=== PATIENT | male | born 1950 | race Two or more races ===

== ENCOUNTER 2017-07-19 15:02 | Inpatient (IN) | payer MEDICARE, OTHER ==
[~2017-07-19] VITALS: Ht 180.3 cm; Wt 64.9 kg
--- NOTE | 2017-07-19 16:00 | NUR ---
GPS/RN PATIENT ADMITTED ON A 5150 HOLD FOR GD AND DTS, UNDER THE CARE OF DR KRAMER AND DR LEE. PER HOLD PATIENT HAS A HISTORY OF SCHIZOPHRENIA, IS YELLING ST STAFF, TALKING TO SELF,VOICING SUICIDAL IDEATION AND UNABLE TO DESCRIBE SAFETY PLAN. UPON FACE TO FACE ASSESSMENT, PATIENT IS ALERT X 2, STABLE CONDITION, HYPERVERBAL, UNKEMPT, DISORGANIZED,DELUSIONAL AND HYPERSEXUAL. PATIENT DENIES ANY SI AT THIS TIME AND STATED " I DID NOT SAY THAT". BOTH DR'S AWARE OF NEW ADMISSION. PATIENT REFUSED TO SIGN ADMISSION PAPERWORK, COSIGNED BY 2 RN. CONTRABAND IN LOCKER, BELONGINGS ( CLOTHING TAKEN TO LAUNDRY). PATIENT WILL BE ON 1:1 FOR HYPERSEXUAL BEHAVIOR. WILL CONTINUE TO MONITOR Q 15 MIN FOR SAFETY AND BEHAVIOR.
[2017-07-19] MEDS ORDERED: ACETAMINOPHEN 325 MG TABLET PO PRN (17:00)
[2017-07-19] MEDS ORDERED: MAGNESIUM HYDROXIDE 30 ML UDC PO PRN (17:00)
[2017-07-19] MEDS ORDERED: MAG HYDROX/AL HYDROX/SIMETH 30 ML UDC PO PRN (17:00)
--- NOTE | 2017-07-19 19:02 | NUR ---
RN NOTE:PATIENT OPENING HIS GOWN SEXUALLY INAPPROPRIATE AND STATED "I OPEN MY GOWN BECAUSE I WANT TO SHOW MY JEAN",DR KRAMER NOTIFIED PATIENT ON 1:1 SITTER.
[2017-07-19 20:00] VITALS: BP_SYST 113; BP_SYST 125; BP_DIAS 64; BP_DIAS 89
[2017-07-20 08:00] VITALS: BP 135/84
[2017-07-20 08:06] LABS: CHOLESTEROL 143 mg/dL (<200); HDL CHOLESTEROL 56 mg/dL (40-60); LDL 77 mg/dL (0-99); TRIGLYCERIDES 61 mg/dL (30-150)
[2017-07-20 08:08] LABS: ALBUMIN 2.9 g/dL (3.4-5.0); BILIRUBIN,TOTAL 0.4 mg/dL (0.2-1.0); CALCIUM, SERUM 8.8 mg/dL (8.5-10.1); CREATININE 0.9 mg/dL (0.6-1.3); TOTAL PROTEIN, SERUM 6.3 g/dL (6.4-8.2)
[2017-07-20] MEDS: DIVALPROEX SODIUM 125 MG CAP.SPRINK PO SCH ×2 (11:30→21:00)
[2017-07-20] MEDS: HALOPERIDOL 5 MG TABLET PO SCH ×3 (12:19→21:00)
[2017-07-20] MEDS ORDERED: diphenhydrAMINE HCL 50 MG/ML VIAL IM STA (14:15)
[2017-07-20] MEDS ORDERED: HALOPERIDOL LACTATE INJ 5 MG/ML VIAL IM STA (14:15)
--- NOTE | 2017-07-20 14:30 | NUR ---
GPS RN NOTE; PATIENT EXTREMELY AGITATED, NOT COOPERATIVE,BANGING ON THE WINDOW AND AC TALKING TO SELF REFUSED ALL PO MEDICATIONS,NOTIFIED DR KRAMER WITH T.O. ORDER FOR BENADRYL 25 MG IM ONCE, HALDOL 5 MG IM ONCE . ORDER PLACED AND CARED OUT WILL CONTINUE MONITORING FOR SAFETY AND BEHAVIOR Q 15 MIN.
[2017-07-20 16:00] VITALS: BP 124/68
--- NOTE | 2017-07-20 16:15 | NUR ---
Initial Discharge Plan: Pt resides at [address] [place] [id number] and has no telephone #. Upon discharge pt would like to return to his home. Pt denied having a support system in place however provided Braxton Palacios, [phone] as an emergency contact. SW will help form a safe and proper discharge.
[2017-07-20] MEDS: BENZTROPINE MESYLATE (1 MG) 1 MG TABLET PO SCH (16:36)
[2017-07-20 20:00] VITALS: BP 130/75
--- NOTE | 2017-07-20 20:44 | NUR ---
PATIENT REFUSED TO TAKE HIS NIGHT MEDICATIONS. VERY AGGRESSIVE, NON-COMPLIANT. 1:1 SITTER AT THE BEDSIDE FOR SAFETY.
[2017-07-21 08:00] VITALS: BP 114/86
[2017-07-21] MEDS: BENZTROPINE MESYLATE (1 MG) 1 MG TABLET PO SCH ×2 (08:31→16:54)
[2017-07-21] MEDS: DIVALPROEX SODIUM 125 MG CAP.SPRINK PO SCH ×2 (08:31→20:37)
[2017-07-21] MEDS: HALOPERIDOL 5 MG TABLET PO SCH ×4 (08:32→20:37)
[2017-07-21 16:00] VITALS: BP 135/76
[2017-07-21 20:00] VITALS: BP 130/78
[2017-07-22 08:11] VITALS: BP 113/74
[2017-07-22] MEDS: DIVALPROEX SODIUM 125 MG CAP.SPRINK PO SCH ×2 (08:22→21:54)
[2017-07-22] MEDS: BENZTROPINE MESYLATE (1 MG) 1 MG TABLET PO SCH ×2 (08:22→16:53)
[2017-07-22] MEDS: HALOPERIDOL 5 MG TABLET PO SCH ×3 (08:22→16:54)
[2017-07-22] MEDS: LORAZEPAM 0.5 MG TABLET PO PRN (13:47)
[2017-07-22 16:00] VITALS: BP 128/79
[2017-07-22 19:42] VITALS: BP 126/73
[2017-07-22] MEDS: ZOLPIDEM TARTRATE 10 MG TABLET PO PRN (21:56)
[2017-07-23 08:00] VITALS: BP 126/91
[2017-07-23] MEDS: LORAZEPAM 0.5 MG TABLET PO PRN ×2 (08:35→17:26)
[2017-07-23] MEDS: BENZTROPINE MESYLATE (1 MG) 1 MG TABLET PO SCH ×2 (08:36→16:04)
[2017-07-23] MEDS: DIVALPROEX SODIUM 125 MG CAP.SPRINK PO SCH ×2 (08:36→21:42)
[2017-07-23] MEDS: HALOPERIDOL 5 MG TABLET PO SCH ×3 (08:36→16:04)
--- NOTE | 2017-07-23 08:40 | NUR ---
GPS/RN PATIENT IS ANXIOUS, AGITATED, WITH POOR BOUNDARIES, ADMINISTERED ATIVAN 1 MG PO, WILL CONTINUE TO MONITOR.
[2017-07-23] MEDS ORDERED: diphenhydrAMINE HCL 50 MG/ML VIAL IM STA (10:21)
[2017-07-23] MEDS ORDERED: HALOPERIDOL LACTATE INJ 5 MG/ML VIAL IM STA (10:21)
--- NOTE | 2017-07-23 10:23 | NUR ---
RN-CO: Patient is non redirectable, keep on going inside a nursing station. Dr Littlejohn examined him and ordered Haldol 5 mg IM STAT, and Benadryl 25 mg IM stat.
--- NOTE | 2017-07-23 10:30 | NUR ---
GPS/RN PATIENT IS EXTREMELY AGITATED, ANXIOUS AND UNABLE TO REDIRECT AT THIS TIME, PATIENT IS ATTEMPTING TO AWOL AND COMING INTO NURSING STATION. DR KRAMER ON UNIT AND ORDERED HALDOL 5MG IM X1, BENADRYL 25MG IM X 1 STAT. ADMINISTERED ORDERED, WILL CONTINUE TO MONITOR.
[2017-07-23 15:53] VITALS: BP 135/75
--- NOTE | 2017-07-23 17:27 | NUR ---
GPS/RN PATIENT IS ANXIOUS, WITH POOR BOUNDARIES AND BEING SEXUALLY INAPPROPRIATE WITH STAFF AND OTHER PATIENT'S. ADMINISTERED ATIVAN 1 MG PO, WILL CONTINUE TO MONITOR.
--- NOTE | 2017-07-23 17:58 | NUR ---
GPS/RN PATIENT WAS CAUGHT CHEEKING MEDICATION. WILL ENDORSE TO ONCOMING SHIFT TO BE ALERT FOR MED CHEEKING.
[2017-07-23 19:45] VITALS: BP 130/77
[2017-07-23] MEDS: ZOLPIDEM TARTRATE 10 MG TABLET PO PRN (21:43)
[2017-07-24 08:00] VITALS: BP 113/70
[2017-07-24] MEDS: HALOPERIDOL 5 MG TABLET PO SCH ×3 (08:11→17:13)
[2017-07-24] MEDS: BENZTROPINE MESYLATE (1 MG) 1 MG TABLET PO SCH ×2 (08:11→17:13)
[2017-07-24] MEDS: DIVALPROEX SODIUM 125 MG CAP.SPRINK PO SCH ×2 (08:11→21:14)
[2017-07-24] MEDS: LORAZEPAM 0.5 MG TABLET PO PRN ×2 (08:12→17:13)
--- NOTE | 2017-07-24 08:12 | NUR ---
GPS/RN PATIENT IS ANXIOUS, UNPREDICTABLE AND LABILE, ADMINISTERED ATIVAN 1 MG PO, WILL CONTINUE TO MONITOR.
[2017-07-24 16:00] VITALS: BP 131/78
--- NOTE | 2017-07-24 17:13 | NUR ---
GPS/RN PATIENT IS ANXIOUS,TAKING ALL SHEETS OFF OF BED, TURNING THE MATTRESS OVER AND BEING UNPREDICTABLE. ADMINISTERED ATIVAN 1 MG PO, WILL CONTINUE TO MONITOR.
[2017-07-24 19:45] VITALS: BP 131/71
[2017-07-24] MEDS: ZOLPIDEM TARTRATE 10 MG TABLET PO PRN (21:15)
[2017-07-25] MEDS: LORAZEPAM 0.5 MG TABLET PO PRN ×2 (08:23→14:08)
[2017-07-25] MEDS: HALOPERIDOL 5 MG TABLET PO SCH ×3 (08:23→16:20)
[2017-07-25] MEDS: DIVALPROEX SODIUM 125 MG CAP.SPRINK PO SCH ×2 (08:23→17:34)
[2017-07-25] MEDS: BENZTROPINE MESYLATE (1 MG) 1 MG TABLET PO SCH ×2 (08:23→16:20)
[2017-07-25 08:45] VITALS: BP 132/80
[2017-07-25 16:00] VITALS: BP 109/77
--- NOTE | 2017-07-25 19:30 | NUR ---
GPS RN NOTE, RECEIVED PATIENT AWAKE AND IN BED, PATIENT HAS NO COMPLAINTS OR S/S OF PAIN AT THIS TIME. PATIENT IS DISPLAYING NO S/S OF APPARENT DISTRESS AT THIS TIME. PATIENT BREATHING IS UNLABORED WITH EQUAL RISE AND FALL OF THE CHEST. PATIENT IS ALERT AND ORIENTED X 2 ON ROOM AIR WITH A SPO2 OF 97%. PATIENT HAS A ONE TO ONE SITTER FOR BEING HYPERSEXUALLY. PATIENT IS COMPLIANT WITH MEDICATION, ANXIOUS AT TIMES, PARANOID, COOPERATIVE, IS HYPERVERBAL, AND NEEDS REORIENTATION. PATIENT DENIES SUICIDE IDEATIONS AND HOMICIDAL IDEATIONS AT THIS TIME. PATIENT ASSISTED WITH TURNING AND REPOSITIONING Q2HR AND PRN FOR COMFORT AND CIRCULATION. PATIENT HAS NO NEEDS AT THIS TIME. PATIENT EDUCATED ON THE USE OF THE CALL [place]. PATIENT SIDE RAILS ARE UP X 2, BED IS LOCKED AND LOW, AND I WILL CONTINUE TO MONITOR THIS PATIENT Q 15 MIN WITH THE HELP OF STAFF.
[2017-07-25 20:00] VITALS: BP 103/79
[2017-07-26] MEDS: BENZTROPINE MESYLATE (1 MG) 1 MG TABLET PO SCH ×2 (08:28→16:54)
[2017-07-26] MEDS: HALOPERIDOL 5 MG TABLET PO SCH ×4 (08:28→21:19)
[2017-07-26] MEDS: DIVALPROEX SODIUM 125 MG CAP.SPRINK PO SCH ×3 (08:28→16:54)
[2017-07-26 08:29] VITALS: BP 117/66
[2017-07-26 20:00] VITALS: BP 123/71
--- NOTE | 2017-07-26 20:30 | NUR ---
GPS/TRANSITION COACH NOTES: PT. VOMITED X1. CALLED AND LEFT MESSAGE TO [email or web address] DR. LAZARO. WAITING FOR CALL BACK.
--- NOTE | 2017-07-26 21:08 | NUR ---
GPS/MARKETING INTELLIGENCE MANAGER NOTES: DR. LAZARO CALLED. CONTINUE TO MONITOR PT. NO NEW ORDERS.
[2017-07-27 08:00] VITALS: BP 118/83
[2017-07-27] MEDS: HALOPERIDOL 5 MG TABLET PO SCH ×4 (08:22→21:55)
[2017-07-27] MEDS: DIVALPROEX SODIUM 125 MG CAP.SPRINK PO SCH ×3 (08:22→17:02)
[2017-07-27] MEDS: BENZTROPINE MESYLATE (1 MG) 1 MG TABLET PO SCH ×2 (08:22→17:02)
[2017-07-27] MEDS: LORAZEPAM 0.5 MG TABLET PO PRN (14:24)
[2017-07-27 15:56] VITALS: BP 130/84
--- NOTE | 2017-07-27 19:20 | NUR ---
RN-CO: PATIENT IS TRYING TO AWOL, EXPOSING HIMSELF , GOING TO PATIENTS ROOM AND DISROBING .
[2017-07-27 20:00] VITALS: BP 152/81
[2017-07-27] MEDS: ZOLPIDEM TARTRATE 10 MG TABLET PO PRN (21:55)
[2017-07-28 08:11] VITALS: BP 115/66
[2017-07-28] MEDS: DIVALPROEX SODIUM 125 MG CAP.SPRINK PO SCH ×3 (08:17→16:21)
[2017-07-28] MEDS: BENZTROPINE MESYLATE (1 MG) 1 MG TABLET PO SCH ×2 (08:17→16:21)
[2017-07-28] MEDS: HALOPERIDOL 5 MG TABLET PO SCH ×4 (08:17→21:47)
[2017-07-28 16:00] VITALS: BP 102/67
[2017-07-28 20:00] VITALS: BP 126/71
--- NOTE | 2017-07-29 07:39 | NUR ---
GPS RN NOTES PATIENT RECEIVED INSIDE ROOM. AWAKE, ALERT AND ORIENTED,VERBALLY RESPONSIVE AND RESPONDS TO VERBAL AND TACTILE STIMULI. BREATHING EVEN AND UNLABORED. NO SOB OR ACUTE DISTRESS NOTED. NO CHANGES IN LOC NOTED AT THIS TIME. WILL CONTINUE TO MONITOR. BED LOCKED AND IN LOW POSITION. BILATERAL UPPER SIDE RAILS UP AND LOCKED. CALL LIGHT WITHIN EASY REACH
[2017-07-29 08:00] VITALS: BP 112/68
[2017-07-29] MEDS: DIVALPROEX SODIUM 125 MG CAP.SPRINK PO SCH ×3 (08:19→16:10)
[2017-07-29] MEDS: HALOPERIDOL 5 MG TABLET PO SCH ×4 (08:19→21:00)
[2017-07-29] MEDS: BENZTROPINE MESYLATE (1 MG) 1 MG TABLET PO SCH ×2 (08:19→16:10)
[2017-07-29 16:00] VITALS: BP 124/77
--- NOTE | 2017-07-29 19:30 | NUR ---
RN NOTES RECEIVED PATIENT AMBULATING IN ROOM WITH A STEADY GAIT. AO X 3, ABLE TO MAKE NEEDS KNOWN. NO ACUTE DISTRESS NOTED. DENIES ANY PAIN AT THIS TIME. PATIENT'S APPROPRIATE AT THIS MOMENT; COOPERATIVE. SAFETY REMINDERS GIVEN. PATIENT WITH LOW BED IN ROOM; UPPER SIDE RAILS UP. PATIENT EDUCATED ON HOW TO USE CALL BUTTON. WILL CONTINUE TO MONITOR.
[2017-07-29 20:00] VITALS: BP 114/89
[2017-07-29 20:37] VITALS: BP 114/89
[2017-07-29] MEDS: ZOLPIDEM TARTRATE 10 MG TABLET PO PRN (21:01)
--- NOTE | 2017-07-30 06:36 | NUR ---
RN NOTES PATIENT AMBULATING IN HALLWAY WITH A STEADY GAIT, RESPIRATIONS EVEN. NO SIGNS OF PAIN NOTED. NEEDS ATTENDED. SAFETY PRECAUTIONS AND COMFORT MEASURES IN PLACE. WILL GIVE REPORT TO DAY SHIFT FOR CONTINUITY OF CARE.
[2017-07-30 08:05] VITALS: BP 112/72
[2017-07-30] MEDS: BENZTROPINE MESYLATE (1 MG) 1 MG TABLET PO SCH (08:23)
[2017-07-30] MEDS: DIVALPROEX SODIUM 125 MG CAP.SPRINK PO SCH ×2 (08:23→13:12)
[2017-07-30] MEDS: HALOPERIDOL 5 MG TABLET PO SCH ×2 (08:23→13:11)
--- NOTE | 2017-07-30 15:21 | NUR ---
GPS/RN PATIENT CLEARED FOR DISCHARGE HOME BY DR KRAMER AND DR SARAVIA. MEDICATIONS RECONCILED BY BOTH DR'S, PRESCRIPTIONS INCLUDED IN PACKET, PRESCRIPTIONS FAXED TO [facility], SPOKE WITH CEDRIC. MEDICATIONS, EXIT CARE AND AFTER CARE PLAN EXPLAINED TO PATIENT, VERBALIZED UNDERSTANDING. ALL BELONGINGS RETURNED TO PATIENT AND BELONGING FORM SIGNED BY PATIENT. PATIENT DENIES SI/HI/AH UPON DISCHARGE, PSYCHIATRIC TREATMENT PLANS MET. PATIENT HAS BEEN COOPERATIVE WITH CARE, MED COMPLIANT WITH NO AGITATION NOTED. LEFT UNIT CALM, NO DISTRESS NOTED WITH ORDNANCE TECHNICIAN AT SIDE, PATIENT WAS ESCORTED TO BUS STOP AND PROVIDED TOKENS.
== END 2017-07-30 15:15 | disposition home or self-care (01) | DRG 885 ==
LOC: GPS 15:39
PROVIDERS: ADMIT Psychiatry & Neurology Psychiatry; ATTEND Psychiatry & Neurology Psychiatry
DX: F25.0 Schizoaffective disorder, bipolar type (principal); F29 Unspecified psychosis not due to a substance or known physiological condition; I10 Essential (primary) hypertension; Z91.19 Patient's noncompliance with other medical treatment and regimen; Z73.6 Limitation of activities due to disability; F41.9 Anxiety disorder, unspecified; Z79.899 Other long term (current) drug therapy; F32.9 Major depressive disorder, single episode, unspecified; Z59.0 Homelessness
CPT/HCPCS: 36415; 80053-TC; 80061-TC; 80164-TC; 87081-TC; J1200; J1630